=== PATIENT | female | born 2000 | race Two or more races ===

== ENCOUNTER 2024-09-25 10:53 | Emergency (ER) | payer OTHER ==
[~2024-09-25] VITALS: Ht 154.9 cm; Wt 87.8 kg
[2024-09-25 11:40] VITALS: BP 107/48; PULSE 82; RESP 18; TEMP 97.8; O2SAT 98
[2024-09-25 11:58] LABS: Urine Bacteria None Seen /hpf (None Seen)
[2024-09-25 12:11] LABS: Urine Blood 2+ /uL (Negative); Urine Clarity Turbid (Clear); Urine Color Light-Yellow (Yellow); Urine Protein, UAD TRACE (Negative); Urine Squamous Epithelial Cell FEW /hpf (<5); Urine Urobilinogen Normal (Negative); Urine WBC 187 /HPF (0-5); Urine pH 5.5 (5.0-9.0)
[2024-09-25] MEDS ORDERED: BACDST PO (12:15)
--- NOTE | 2024-09-25 12:16 | ED.PDOC ---
General HPI Comments This is a 24-year-old female that comes in with dysuria urgency frequency and some red streaking in her urine since Thursday. She has also has some lower abdominal pain.. She states she drinks lots of liquids she does not hold her urine.. Chief Complaint: Urinary Time Seen by MD: 12:09 Primary Care Provider: [facility] Reviewed notes: Nurses Notes, Medications, Allergies Allergies: Coded Allergies: NO KNOWN ALLERGIES (Unverified , 09/25/24) Information Source: Patient Mode of Arrival: Ambulatory Social History Smoker: Non-Smoker Alcohol: Denies ETOH Use Drugs: Denies Drug Use Lives In: Home Gastrointestinal: reports: abdominal pain Genitourinary: reports: burning, dysuria, hematuria, urgency All Other Systems: Reviewed and Negative Physical Exam General Appearance: No Apparent Distress, Normal HEENT: Normal ENT Inspection, PERRL/EOMI, Pharynx Normal, TMs Normal Neck: Non-Tender, Normal, Normal Inspection Respiratory: Lungs Clear, No Respiratory Distress, Normal Breath Sounds Cardiovascular: Regular Rate/Rhythm Breast Exam: Deferred Gastrointestinal: No Pulsatile Mass, Normal Bowel Sounds, Suprapubic Genitalia: Deferred Pelvic: Deferred Rectal: Deferred Extremities: Normal inspection, Normal range of motion Neurologic: Alert, Normal Affect, Normal Mood Cerebellar Function: NOT DONE Reflexes: NOT DONE Skin: Dry, Warm Lymphatic: No Adenopathy Was a procedure done? Was a procedure done?: No Differential Diagnosis Kidney stone (Female): Pyelonephritis, Urinary obstruction, Urolithiasis Kidney stone (Male): Pyelonephritis X-Ray, Labs, Meds, VS Vital Signs Date Time Temp Pulse Resp B/P (MAP) Pulse Ox O2 Delivery O2 Flow Rate FiO2 09/25/24 11:40 97.8 82 18 107/48 (67) 98 97.8 09/25/24 11:40 82 18 98 Room Air 09/25/24 11:00 97.8 82 18 107/48 (67) 98 Lab Test 09/25/24 10:59 Range/Units Urine Color Pending Urine Clarity Pending Urine pH Pending Urine Specific [place] Pending Urine Protein Pending Urine Ketones Pending Urine Blood Pending Urine Nitrite Pending Urine Bilirubin Pending Urine Urobilinogen Pending Urine Leukocyte Esterase Pending Urine RBC Pending Urine Microscopic WBC Pending Urine Squamous Epithelial Cells Pending Urine Bacteria Pending Urine Glucose Pending X-Ray, Labs, Meds, VS Comment Patient seen and examined by me. Patient has urinary tract symptoms consistent with an infection. I will treat her with oral antibiotics. Patient's lab results show she has an infection. Encouraged to drink lots of liquids, not to hold her urine and make sure she which she needs to go.. Told her symptoms should improve in the next 48 hours if she starts having worsening pain headache vomiting vomiting fever she needs to come back to the ER. Time of 1ST Reevaluation: 12:13 Reevaluation 1ST: Improved Patient Education/Counseling: Diagnosis, Treatment, Prognosis, Need For Follow Up Family Education/Counseling: No Family Present Departure 1 Departure Time of Disposition: 12:14 Impression: Primary Impression: UTI (urinary tract infection) Disposition: 01 HOME / SELF CARE / HOMELESS Condition: Good Additional Instructions: Please drink lots of liquids Sure when you feel like you need to use the bathroom go and do not hold your urine If your sexually active make sure you urinate before and after you have sex If you symptoms start to get worse come back to the ER e-Prescriptions Sulfamethoxazole W/Trimethopri (Bactrim Ds Tablet) 1 Tab Tb 1 TAB PO BID for 7 Days, #14 TAB Prov: ANNA KRAUSE 09/25/24 Discharged With: Self Critical Care Note Critical Care Time?: No Stability Stability form required: ANNA Lemus Sep 25, 2024 12:16
== END 2024-09-25 12:22 | disposition home or self-care (01) ==
LOC: ER 10:55
DX: N39.0 Urinary tract infection, site not specified (principal)
CPT/HCPCS: 81001